=== PATIENT | male | born 1935 | race Caucasian/White ===

== ENCOUNTER 2017-05-09 14:36 | Emergency (ER) | payer OTHER ==
[~2017-05-09] VITALS: Ht 172.7 cm; Wt 81.6 kg
[2017-05-09 15:19] LABS: BASOPHILS # (AUTO) 0.1 K/uL (0.0-8.0); BASOPHILS % (AUTO) 0.7 % (0.0-2.0); CARBON DIOXIDE 31 mmol/L (21-32); CHLORIDE 101 mmol/L (98-107); CREATININE 1.8 mg/dL (0.6-1.3); EOSINOPHILS % (AUTO) 0.1 % (0.0-7.0); GLUCOSE 115 mg/dL (74-106); HEMATOCRIT 41.9 % (36.7-47.1); HEMOGLOBIN 14.3 g/dL (12.5-16.3); LYMPHOCYTES # (AUTO) 0.7 K/uL (20.0-40.0); LYMPHOCYTES % (AUTO) 7.2 % (20.5-51.5); MEAN CORPUSCULAR HEMOGLOBIN 29.7 uug (23.8-33.4); MEAN CORPUSCULAR HGB CONC 34 g/dL (32.5-36.3); MEAN CORPUSCULAR VOLUME 87.2 fL (73.0-96.2); MONOCYTES # (AUTO) 1.7 K/uL (2.0-10.0); MONOCYTES % (AUTO) 17.7 % (0.0-11.0); NEUTROPHILS % (AUTO) 74.3 % (38.5-71.5); PLATELET COUNT (AUTO) 152 K/uL (152-348); POTASSIUM 3.7 mmol/L (3.5-5.1); RED BLOOD CELL COUNT(AUTO) 4.81 MIL/uL (4.06-5.63); UREA NITROGEN, BLOOD 29 mg/dL (7-18); WHITE BLOOD COUNT (AUTO) 9.4 K/uL (3.6-10.2)
--- NOTE | 2017-05-09 15:33 | NUR ---
DR CARVALHO AT THE BEDSIDE FOR EVAL AND EXAM.
[2017-05-09 15:38] LABS: BAND % (MANUAL) 18 % (0-10); LYMPHOCYTES % (MANUAL) 5 % (20-40); MONOCYTES % (MANUAL) 16 % (2-10); NEUTROPHILS % (MANUAL) 61 % (42-75)
--- NOTE | 2017-05-09 15:53 | NUR ---
Patient is resting comfortably in bed with eyes closed, NAD noted.
--- NOTE | 2017-05-09 16:15 | NUR ---
SPOKE TO [facility]
--- NOTE | 2017-05-09 16:30 | NUR ---
DR VAUGHAN FROM [facility] CALLED AND SPOKE TO EUGENE.
[2017-05-09] MEDS: ASPIRIN 325 MG TABLET PO ONE (17:55)
[2017-05-09] MEDS ORDERED: ASPIRIN 325 MG TABLET ONE (18:07)
--- NOTE | 2017-05-09 19:53 | NUR ---
Viktoriya from [facility] called with transfer information. Pt to be transferred to [facility], [address]a [address]. Accept[address] Dr[address] Don, Rm [id number], number for report : [phone]. Primary nurse notified
--- NOTE | 2017-05-09 20:06 | NUR ---
REPORT CALLED TO JIMENEZ ANGULO AT [facility]. PATIENT WILL BE TRANSFERRED TO ROOM 5315
--- NOTE | 2017-05-09 21:03 | NUR ---
REPORT GIVEN TO [employer] MACHINE TENDER Jose COTTER.
== END 2017-05-09 21:10 | disposition short-term general hospital (02) ==
LOC: ER 14:37
DX: R55 Syncope and collapse (principal); R79.89 Other specified abnormal findings of blood chemistry; I10 Essential (primary) hypertension; E11.9 Type 2 diabetes mellitus without complications; I70.0 Atherosclerosis of aorta; W18.30XA Fall on same level, unspecified, initial encounter; Y93.89 Activity, other specified; Y92.481 Parking lot as the place of occurrence of the external cause; Y99.8 Other external cause status
CPT/HCPCS: 36415; 71010; 80048; 84484; 85025; 85730; 93005; 99285; A4663; 70030-TC